=== PATIENT | female | born 1990 | race Caucasian/White ===

== ENCOUNTER 2022-07-28 12:26 | Emergency (ER) | payer MEDICAID ==
[~2022-07-28] VITALS: Ht 165.1 cm; Wt 79.0 kg
[2022-07-28 12:34] VITALS: BP 112/74
== END 2022-07-28 17:02 | disposition left against medical advice (07) ==
LOC: ER 12:26
DX: Z53.21 Procedure and treatment not carried out due to patient leaving prior to being seen by health care provider (principal); R07.9 Chest pain, unspecified; R00.2 Palpitations; R42 Dizziness and giddiness
CPT/HCPCS: 93005